=== PATIENT | male | born 1960 | race Caucasian/White ===

== ENCOUNTER 2018-03-17 19:17 | Inpatient (IN) | payer OTHER ==
[2018-03-17] MEDS ORDERED: Ketorolac Tromethamine 30 MG/ML VIAL ONE (20:05)
[2018-03-17] MEDS ORDERED: cefTRIAXone\\ROCEPHIN 2 GM VIAL ONE (20:05)
[2018-03-17] MEDS ORDERED: Doxycycline 100 MG CAP PO SCH (20:15)
[2018-03-17 20:21] LABS: #Eosinphils 0.1 thou/uL (0.0-0.7); #Lymphocytes 0.9 thou/uL (1.20-3.40); #Monocytes 0.7 thou/uL (0.11-0.59); #Neutrophils 11.4 thou/uL (1.40-6.50); %Basophils 0.1 % (0.0-1.0); %Eosinophils 0.5 % (0.0-10.0); %Lymphocytes 6.6 % (21.0-51.0); %Monocytes 5.1 % (0.0-10.0); %Neutrophils 87.7 % (42.0-75.0); Hemoglobin 14.1 g/dL (14.0-18.0); Mean Corpuscular HGB CONC 35.2 g/dL (32.0-36.0); Mean Platelet Volume 8.4 fL (7.4-10.4); Platelet Count 100 thou/uL (130-400); RBC Distribution Width 12.5 % (11.5-14.5); Red Blood Cell (RBC) Count 4.39 mill/uL (4.70-6.10)
[2018-03-17 20:39] LABS: ALT (SGPT) 16 U/L (8-55); AST (SGOT) 20 U/L (5-34); Albumin 3.9 g/dL (3.5-5.0); Alkaline Phosphatase 76 U/L (40-150); Anion Gap 14 mmol/L (10-20); BUN (Urea Nitrogen) 28 mg/dL (8.4-25.7); Calc. Creatinine Clearance 0 mL/min (70-130); Calcium 9.3 mg/dL (7.8-10.44); Carbon Dioxide 21 mmol/L (22-29); Chloride 106 mmol/L (98-107); Estimated GFR-MDRD 55; Globulin 2.4 g/dL (2.4-3.5); Glucose 112 mg/dL (70-105); Potassium 3.8 mmol/L (3.5-5.1); Protein, Total 6.3 g/dL (6.0-8.3); Sodium 137 mmol/L (136-145)
[2018-03-17] MEDS ORDERED: Ondansetron HCl/PF 4 MG/2 ML Vial IVP PRN (22:48)
[2018-03-17] MEDS ORDERED: Acetaminophen 325 MG TAB PO PRN (22:48)
[2018-03-17] MEDS ORDERED: Ondansetron ODT 4 MG TAB SL PRN (22:48)
[2018-03-17] MEDS ORDERED: HYDROcodone/Acetaminophen 5/325 mg Tablet PO PRN ×2 (22:48)
[2018-03-17] MEDS: Sodium Chloride 0.9% 1,000 ML IV SCH (23:52)
[2018-03-18 01:38] VITALS: BMI 29.4
[2018-03-18] MEDS ORDERED: Vancomycin HCl 1 GM in Premix Bag 1 BAG IVPB SCH (09:00)
[2018-03-18] MEDS ORDERED: Doxycycline 100 MG CAP PO SCH ×2 (09:00→21:00)
[2018-03-18] MEDS: Sodium Chloride 0.9% 1,000 ML IV SCH (09:14)
[2018-03-18] MEDS: Dextrose 5 %-0.45 % NaCl 1,000 ML IV SCH (11:35)
[2018-03-18] MEDS: cefTRIAXone\\ROCEPHIN 1 GM in Sodium Chloride 0.9% 100 ML SLOW IVP SCH (11:35)
[2018-03-18] MEDS: Vancomycin HCl 1 GM in Premix Bag 1 BAG IVPB SCH ×2 (12:39→23:50)
--- NOTE | 2018-03-18 13:34 | HP ---
DATE OF ADMISSION: 03/17/2018 CHIEF COMPLAINT: Redness and edema after a cat scratch. HISTORY OF PRESENT ILLNESS: This is a 57-year-old male patient of Dr. Dagoberto Mcmullen who ca me to the emergency room yesterday after noticing worsening of redness and swelling to his right hand and a red line going up his forearm. He had approached a stray cat the day previously on the front of his house and he had never seen the cat before and it scratched him once in the hand. He did not require any immediate first-aid, was not sure it was that big of a scratch, so did not do anything ab out it at that time. The next day, he noticed it was much more swollen and red and then saw a red st reak coming up the forearm, so he came to the emergency room. He has not had any fever or chills, st ill has good sensation to the fingertips. He noticed he has trouble performing a fist or closing his hand, but he still can move all extremities and all joints in the hand. PAST MEDICAL HISTORY: Positive for hyperlipidemia, hypertension, and chronic renal insufficiency who was found to have one kidney slightly smaller than the other, chronic GERD, he has a history of a ri ght bundle branch block and history of kidney stones many years ago, approximately 4-5 years ago had a fall resulting in pelvic fractures, also has a history of depression which is in remission. 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 ALLERGIES: No known drug allergies. MEDICATIONS: He takes lisinopril 40 mg daily, Lipitor 20 mg daily, Celexa 40 mg daily, and Protonix 40 mg daily. FAMILY HISTORY: Positive for hypertension and coronary artery disease, has diabetes in a grandparent . 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 He is , has no toxic habits. REVIEW OF SYSTEMS: He denies any fever or chills, headache, visual changes, no troubles chewing or s wallowing. No chest pain or shortness of breath, no cough, no nausea, vomiting, no diarrhea, constip ation. Denies any abdominal pain. Denies any melena or hematochezia. Denies any dysuria or hematur ia. Denies any paresis or paresthesias. The only orthopedic issue is in that right hand. He denies any seizure activity. No homicidal or suicidal ideations. No auditory or visual hallucinations. PHYSICAL EXAMINATION: GENERAL: He is awake and alert, up and about. He is alert and oriented x4. He is in no acute distr ess. He is afebrile. VITAL SIGNS: Temperature 98.2, pulse 64, blood pressure is 134/73 with 18 respirations. HEENT: Shows normocephalic and atraumatic cranium. He wears glasses. His pupils are equal, round, reactive to light and accommodation. Extraocular movements are intact. Mucous membranes are moist. His eyes are anicteric. NECK: Supple, no JVD, no bruits, no thyromegaly, no lymphadenopathy. LUNGS: Clear to auscultation bilaterally. HEART: S1, S2, with no rubs, murmurs, or gallops. ABDOMEN: Soft, nontender, nondistended, no palpable masses, no hepatosplenomegaly. GENITOURINARY: Exams deferred. EXTREMITIES: His right hand has a small punctate puncture bronson at the base of the index finger MP kimberli int on the palmar side with surrounding erythema and redness, all the fingers of the right hand are a lso swollen. He has good sensation still in the fingertips. The erythema is also localized primaril y to the palm, but there is some redness running up the wrist to the forearm. The hand overall is sw ollen. He can still move the wrist. Otherwise, other extremities show good palpable pulses. NEUROLOGIC: Unremarkable. Cranial nerves II through XII are equal and symmetrical. LABORATORY DATA AND X-RAY FINDINGS: His white count is 13,000, H&H is 14 and 40 with 100,000 platele ts. Sodium is 137, potassium is 3.8, bicarbonate is 26, BUN is 28, creatinine is 1.3, glucose of 112 . ASSESSMENT AND PLAN: Right hand cat scratch with tenosynovitis and slight phlebitis. The patient is on a combination of vancomycin, Rocephin, and doxycycline. We will continue to do those. Dr. Mady xie from Orthopedics has been consulted and will take him to the operating room today for an I&D of the hand. Dr. Rome will be consulted for further evaluation including any possible opinion on rabies t reatment versus investigation.
--- NOTE | 2018-03-18 14:25 | CON ---
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 He picked up a stray cat, got scratch in the palm of his hand, developed increasing pain, swellin g, and fever since Monday night, presented to the ER yesterday with severe pain and swelling of the r ight hand. He was admitted, but I was not notified of his admission. There is no hand surgery avail able in this weekend loss control consultant and unfortunately no one was notified of his admission last night. PAST MEDICAL HISTORY: Negative. ALLERGIES AND MEDICATIONS: None. SOCIAL HISTORY: Drinks socially. He does not smoke. REVIEW OF SYSTEMS: Positive for fever, chills, pain and swelling. Negative for chest pain, nausea, vomiting. PHYSICAL EXAMINATION: Exam shows a pleasant gentleman who is in no distress. He has actually had so me resolution of streaks on his right arm by report. He has tenderness into his carpal tunnel of his hand. His second, third, and fourth is held in a flexed posture. He has pain with passive flexion. Pain with palpation along the tendon sheath and fusiform swelling. ASSESSMENT: Flexor tenosynovitis digits 3 and 4. PLAN: For I&D and fortunately, the patient already had breakfast, off to wait a few hours, still has been n.p.o. He understands the risk and understands the wound will be left open. He understands he will require continued IV antibiotics and may require additional surgery, like to proceed with surge ry.
[2018-03-18] MEDS ORDERED: Ondansetron HCl/PF 4 MG/2 ML Vial IVP PRN (14:28)
[2018-03-18] MEDS ORDERED: Ondansetron HCl/PF 4 MG/2 ML Vial ONE (14:55)
[2018-03-18] MEDS ORDERED: Lidocaine 1% PF 5 ML VIAL ONE (14:55)
[2018-03-18] MEDS ORDERED: PROPOFOL 200 MG/20 ML VIAL ONE (14:55)
[2018-03-18] MEDS ORDERED: Dexamethasone 20 MG/5 ML VIAL ONE (14:55)
[2018-03-18] MEDS ORDERED: Fentanyl 100 MCG/2 ML VIAL ONE ×2 (15:30→16:40)
[2018-03-18] MEDS ORDERED: PROPOFOL 20 ML ONE (15:37)
[2018-03-18] MEDS ORDERED: traMADol HCl 50 MG TAB PO PRN (17:05)
[2018-03-18] MEDS ORDERED: HYDROcodone/Acetaminophen 10/325 mg Tablet PO PRN ×2 (17:05)
--- NOTE | 2018-03-18 17:48 | OP ---
PREOPERATIVE DIAGNOSIS: Flexor tendon synovitis from right third and fourth digit. POSTOPERATIVE DIAGNOSIS: Flexor tendon synovitis from right third and fourth digit. PROCEDURE PERFORMED: Irrigation and debridement of right third finger and fourth finger flexor tenos ynovitis. ANESTHESIA: General. BLOOD LOSS: Minimal. SPECIMEN: Cultures. DRAINS: None. COMPLICATIONS: None. PROCEDURE IN DETAIL: The patient was taken to operating room where general anesthesia was induced. R ight arm was prepped and draped in the usual sterile fashion for exsanguination, tourniquet was infla aaliyah to 250 mmHg. I made longitudinal incisions on the ulnar aspect of the 3rd and 4th digits at the level of the DIP joint and transverse incisions in the flexor crease of the 3rd and 4th digits. I op ened the tendon sheath and there was brown purulent fluid in the tendon sheath, was fairly watery con sistency. I irrigated through and through the tendon sheath with Angiocath and sterile saline. Tour niquet was released. Irrigation was performed. Hemostasis was obtained. I was not able to milk any fluid from proximally, only distally, so therefore did not open the carpal tunnel. Wounds were pack ed open with a Kerlix roll and a sterile dressing was applied.
--- NOTE | 2018-03-18 23:11 | CON ---
DATE OF CONSULTATION: 03/18/2018 REASON FOR CONSULTATION: Cat scratch with inflammatory process and lymphangitis, right upper extremi ty. HISTORY OF PRESENT ILLNESS: A 57-year-old patient with history of hyperlipidemia, hypertension, elisabet l insufficiency, GERD who sustained a cat scratch to his right hand. The is not his own cat. He did not retrieve the animal and cannot observe the animal for the next 10 days to verify clinical stabil ity. He had developed inflammatory changes and was admitted for management. Initial findings showed no imaging studies were done. The patient underwent operative debridement by Dr. Ryder. Longitudi nal incisions on the ulnar aspect of the 3rd and 4th digits were negative at the level of the DIP niurka nt, and transverse incisions at flexor crease, 3rd and 4th digits. Tendon sheath was opened and ther e was brown purulent fluid in the tendon sheath. This was irrigated [id number]. Tourniquet was released. Irrigation was performed. Carpal tunnel was not opened. Wounds were packed. Currently, he is feeling better. Denies headaches, visual symptoms, sore throat, odynophagia, or dys phagia. No cough, sputum production, or chest pain. No abdominal pain, diarrhea, or genitourinary s ymptoms. No other joint symptoms. No neurological symptoms. PAST MEDICAL HISTORY: Hyperlipidemia; hypertension; renal insufficiency, unknown reason; nephrolithi asis; pelvic fractures. ALLERGIES: None. PAST SURGICAL HISTORY: Left hand digit amputation after saw accident. CURRENT MEDICATIONS: Ceftriaxone, doxycycline, and vancomycin. FAMILY HISTORY: Hypertension, coronary artery disease. 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 FAMILY HISTORY: Noncontributory. PHYSICAL EXAMINATION: VITAL SIGNS: Essentially normal. SKIN: Inflammatory changes in right hand. This was before the surgery with erythema in dorsal and v entral aspect of the lateral right hand. There is lymphangitic spread towards the right upper extrem ity. No lymphadenopathy. HEENT: Ocular movements conjugate. Oral cavity normal. NECK: Supple. LUNGS: Symmetric. Clear breath sounds. HEART: S1, S2 regular rate. No S3, S4. ABDOMEN: Soft. Not distended or tender. No ascites. No bladder distention. EXTREMITIES: No joint inflammatory activity outside the area of involvement. NEUROLOGIC: Nonfocal. LABORATORY DATA: White cell count 13,000, hemoglobin 14, platelets 100, and creatinine 1.34. There are the only values that we have in the record. Liver profile normal. Albumin 3.9. Two sets of blo od cultures pending. Again, we do not have any imaging studies. ASSESSMENT: Cat scratch with inflammatory process with tenosynovitis, status post surgical debrideme nt and tenosynovectomy. Cultures are pending. Blood cultures are pending. DISCUSSION: The most likely scenario is Pasteurella multocida, cellulitis, tenosynovitis, and right upper extremity lymphangitis. The patient may be bacteremic, particularly in view of the thrombocyto penia detected. Septic arthritis and osteomyelitis is less likely. Continue Rocephin. Add Cipro. Discontinue doxycycline. Wait on final cultures. Again, probably discontinue vancomycin depending o n results of cultures. Once there is further clinical improvement, then plan transition to oral paula men either with Augmentin or continuation of quinolone. Duration of therapy probably around 3 weeks. Regarding the rabies transmission possibility, he does not have the cat available for observation. We will contact the Health Department tomorrow to obtain advice regarding the need for rabies prophy laxis or not.
[2018-03-19] MEDS: Dextrose 5 %-0.45 % NaCl 1,000 ML IV SCH ×3 (07:34→18:35)
--- NOTE | 2018-03-19 07:53 | PRG ---
DATE OF SERVICE: 03/19/2018 The patient is doing well, reports less pain, less redness to his arm. PHYSICAL EXAMINATION: VITAL SIGNS: BP 150/75. LUNGS: Clear. HEART: Reveals no murmur. It has been reported he has a left carotid bruit. NECK: I did not hear a bruit on my examination today. Microbiology cultures thus far are negative. IMPRESSION: Tenosynovitis of right hand. PLAN: 1. Continue current antibiotic regimen. 2. With regard to left carotid bruit will go ahead and order a carotid ultrasound for completeness.
[2018-03-19] MEDS: cefTRIAXone\\ROCEPHIN 1 GM in Sodium Chloride 0.9% 100 ML SLOW IVP SCH (11:11)
--- NOTE | 2018-03-19 12:30 | ULT ---
CAROTID ULTRASOUND: DATE: 03/19/18 COMPARISON: None. HISTORY: Left carotid bruit. TECHNIQUE: Multiplanar Valdez scale and color Doppler images were obtained in a carotid ultrasound. Spectral cristina sis of the Doppler waveforms were performed. FINDINGS: There is a small to moderate amount of plaque seen in the proximal aspect of both internal carotid ar teries. The Doppler waveforms are normal bilaterally. Peak systolic velocity in the right ICA is 154 cm/second. Peak systolic velocity in the right CCA is 161 cm/second. The right ICA/CCA ratio is 1.0. Peak systolic velocity in the left ICA is 214 cm/second. Peak systolic velocity in the left CCA is 12 6 cm/second. The left ICA/CCA ratio is 1.7. Both vertebral arteries demonstrate antegrade flow without focal stenosis. IMPRESSION: Moderate stenosis of 50-69% in the bilateral internal carotid arteries per velocity criteria. This ap pears greater on the left than on the right. POS: FAUSTO
[2018-03-19] MEDS: Vancomycin HCl 1 GM in Premix Bag 1 BAG IVPB SCH (12:36)
[2018-03-19] MEDS ORDERED: Cipro 250 MG TAB PO SCH (20:00)
[2018-03-19] MEDS: Ciprofloxacin 500 MG TAB PO SCH (20:43)
[2018-03-19 23:32] LABS: Vancomycin, Trough 12.5 ug/mL
[2018-03-20] MEDS: Vancomycin HCl 1.25 GM in Sodium Chloride 0.9% 250 ML 250 ML IVPB SCH ×2 (00:51→12:05)
[2018-03-20] MEDS: Ciprofloxacin 500 MG TAB PO SCH ×2 (05:54→20:53)
[2018-03-20] MEDS: Dextrose 5 %-0.45 % NaCl 1,000 ML IV SCH ×3 (05:55→22:20)
--- NOTE | 2018-03-20 07:40 | PRG ---
DATE OF SERVICE: 03/20/2018 SUBJECTIVE: He is feeling better, less pain in the hand, status post incision and drainage by Dr. Yashira reyes. PHYSICAL EXAMINATION: LUNGS: Lungs are clear. HEART: S1, S2, regular rate. ABDOMEN: Soft, not distended. No diarrhea. VITAL SIGNS: Vital signs are fairly normal. GENERAL: Awake, alert, oriented. EXTREMITIES: The right hand dressed with a bulky cover which was not removed. LABORATORY DATA: White cell count 13,000 and has not been repeated. Creatinine 1.24. Microbiology is still pending. ASSESSMENT AND DISCUSSION: Cat scratch or inflammatory process with tenosynovitis, status post I&D w ith tenosynovectomy. Cultures are still pending as well as blood cultures. Again most likely scenar io ____ . Continue current regimen. Eventual plans would be transition to oral Cipro if the culture s reveal Pasteurella. Even if the cultures are not ready, as long as there is no evidence of MRSA, I would still transition to oral ciprofloxacin for discharge planning. If there is MRSA isolated the n we will have to adjust regimen accordingly. Discussed with health department since patient was not bitten by the cat, but just scratched and rabies prophylaxis is not indicated.
--- NOTE | 2018-03-20 08:37 | PRG ---
DATE OF SERVICE: 03/20/2018 Mr. Jade is feeling well. He notes left hand pain. PHYSICAL EXAMINATION: VITAL SIGNS: Temperature 97.9, BP 149/81. LUNGS: Clear. HEART: Reveals no murmur. EXTREMITIES: Right arm shows decreased redness. The dressings are still in place to his right hand. Cultures thus far are negative. Due to recent carotid bruit it was discovered he underwent a carotid ultrasound which showed 49-50% blockages, otherwise no evidence of any other hemodynamically signifi cant lesions. IMPRESSION: 1. Cellulitis, right hand. 2. Carotid bruits asymptomatic with 40-50% blockage of carotid arteries bilaterally. PLAN: 1. He will continue antibiotics. He hopefully will be discharged soon on oral antibiotics. It has been determined he does not need rabies prophylaxis. 2. With regards to his carotid bruits, this will be addressed at his followup appointment with me julian estevez approximately 3 weeks. He has been notified of this and probably needs to start taking aspirin 1 d aily, and have better control of his cholesterol.
[2018-03-20] MEDS ORDERED: PROVENTIL INHALER 6.7 G (200 INHALATIONS) INH PRN (13:19)
[2018-03-20] MEDS ORDERED: Lisinopril 20 MG TAB PO SCH (13:30)
[2018-03-20] MEDS ORDERED: Atorvastatin Calcium 20 MG TAB PO SCH (13:30)
[2018-03-20] MEDS: cefTRIAXone\\ROCEPHIN 1 GM, Admixture Fee 1 EACH in Sodium Chloride 0.9% 100 ML IVPB SCH (13:44)
--- NOTE | 2018-03-20 16:23 | PRG ---
DATE OF SERVICE: 03/20/2018 SUBJECTIVE: Bebo is now 3 days status post incision, drainage, washout of his right hand. Cultures at this time have not revealed a causative organism, but review of Dr. Rome' notes are suspect for P asteurella. Also, consideration for MRSA. At this time, cultures have not grown an organism. OBJECTIVE: On exam, he has a wound VAC in place. He is neurovascularly intact in the lower extremit ies. Good capillary refill is noted. He has adequate range of motion with flexion and extension of the digits. ASSESSMENT: A 57-year-old male, right hand with a septic flexor tenosynovitis. Causative organism e ither Pasteurella multocida versus methicillin-resistant Staph aureus. PLAN: Probably defer definitive antibiotics until cultures reveal organism; however, it is not uncom mon for cultures did not reveal Pasteurella in my experience. We will recheck the patient tomorrow. 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
[2018-03-20] MEDS ORDERED: traZODone HCl 50 MG TAB PO SCH (21:00)
[2018-03-21] MEDS: Vancomycin HCl 1.25 GM in Sodium Chloride 0.9% 250 ML 250 ML IVPB SCH ×2 (00:24→12:06)
[2018-03-21] MEDS: Ciprofloxacin 500 MG TAB PO SCH (06:07)
--- NOTE | 2018-03-21 07:45 | PRG ---
DATE OF SERVICE: 03/21/2018 Mr. Jade is doing well, he is interested in going home. He has had no fever. PHYSICAL EXAMINATION: VITAL SIGNS: Temperature 97.7. LUNGS: Clear. HEART: Reveals no murmur. Cultures thus far are still negative. Anaerobic culture is pending. IMPRESSION: Tenosynovitis, right hand, status post incision and drainage of tendon sheaths. PLAN: The patient will be discharged home on Cipro 500 mg p.o. b.i.d. Advised to follow up with Dr. Ryder. He will release him back to work. He will follow up with me in 2-3 weeks. He already has a physical scheduled so we can address his carotid Doppler studies.
--- NOTE | 2018-03-21 08:14 | DIS ---
DISCHARGE DIAGNOSES: Infectious tenosynovitis of the right hand, etiology of bacteria unknown. CONSULTING PHYSICIAN: Dr. Ryder and Dr. Rome [facility] SUMMARY: The patient is a 57-year-old male who was admitted to the hospital due to swelling and redness of the right hand with extensive linear streaking. He underwent operative intervention for drainage of his right hand with irrigation and debridement of the right third and fourth finger. He was found to have some tenosynovitis there. He was placed on IV Rocephin and oral Cipro. Cultur es were obtained. His postoperative course remained steady and calm, other than the fact that he had a carotid bruit discovered during anesthesia. He underwent carotid Doppler study which did reveal u p to 40-50-60 percent occlusions without symptoms of Carotid Dopplers. He continued to progress wel l. He was discharged home on home medications. DISCHARGE MEDICATIONS: Cipro 500 mg b.i.d. He will be instruct to see Dr. Ryder in 1 week for return to work orders and follow up with me in 3 -4 weeks for his carotid Doppler studies.
[2018-03-21] MEDS ORDERED: Lisinopril 20 MG TAB PO SCH (09:00)
[2018-03-21] MEDS ORDERED: Atorvastatin Calcium 20 MG TAB PO SCH (09:00)
[2018-03-21] MEDS ORDERED: Citalopram 20 MG TAB PO SCH (09:00)
[2018-03-21] MEDS ORDERED: Famotidine 20 MG TAB PO SCH (09:00)
[2018-03-21] MEDS ORDERED: Loratadine 10 MG TAB PO SCH (09:00)
[2018-03-21] MEDS: Dextrose 5 %-0.45 % NaCl 1,000 ML IV SCH (10:23)
[2018-03-21] MEDS: cefTRIAXone\\ROCEPHIN 1 GM, Admixture Fee 1 EACH in Sodium Chloride 0.9% 100 ML IVPB SCH (12:06)
[2018-03-21 15:11] VITALS: BP 136/83; TEMP 98.3
== END 2018-03-21 15:35 | disposition home or self-care (01) | DRG 514 ==
LOC: ERS 19:17 → SURG A 21:07
PROVIDERS: ADMIT Family Medicine; ATTEND Family Medicine
PROC: 0L970ZZ Drainage of Right Hand Tendon, Open Approach (ICD-10-PCS; principal; 2018-03-18)
DX: M65.141 Other infective (teno)synovitis, right hand (principal); S60.511A Abrasion of right hand, initial encounter; E78.5 Hyperlipidemia, unspecified; I12.9 Hypertensive chronic kidney disease with stage 1 through stage 4 chronic kidney disease, or unspecified chronic kidney disease; N18.9 Chronic kidney disease, unspecified; K21.9 Gastro-esophageal reflux disease without esophagitis; I65.23 Occlusion and stenosis of bilateral carotid arteries; Z89.022 Acquired absence of left finger(s); Z79.899 Other long term (current) drug therapy; W55.03XA Scratched by cat, initial encounter
CPT/HCPCS: 36415; 80053; 80202; 83605; 85025; 87040; 87070; 87205; 93880; 96365; 96367; 96375; A4216; J0696; J1100; J1885; J2001; J2405; J2704; J3010; J3370; J7050